=== PATIENT | female | born 1945 | race Caucasian/White ===

== ENCOUNTER 2020-12-14 07:54 | Day surgery (SDC) | payer BC ==
[2020-12-09 09:25] VITALS: BMI 27.1
[2020-12-14] MEDS ORDERED: PROPOFOL 20 ML ONE ×3 (08:26)
[2020-12-14] MEDS ORDERED: LIDOCAINE HCL/PF 2% SDV 5ML VIAL ONE (08:26)
[2020-12-14 09:47] VITALS: TEMP 97.5
[2020-12-14 10:25] VITALS: BP 143/76; PULSE 66
== END 2020-12-14 10:40 | disposition home or self-care (01) ==
LOC: FASU-ENDO 07:54
PROVIDERS: ATTEND Internal Medicine Gastroenterology
PROC: 0DJD8ZZ Inspection of Lower Intestinal Tract, Via Natural or Artificial Opening Endoscopic (ICD-10-PCS; principal; 2020-12-14 09:22)
DX: Z12.11 Encounter for screening for malignant neoplasm of colon (principal); K64.0 First degree hemorrhoids; K64.4 Residual hemorrhoidal skin tags; K62.5 Hemorrhage of anus and rectum

== ENCOUNTER 2021-02-27 22:37 | Emergency (ER) | payer BC ==
[2021-02-27 22:59] VITALS: PULSE 79; TEMP 98.3; BMI 29.2
[2021-02-27 23:16] VITALS: BP 150/90
== END 2021-02-27 23:49 | disposition home or self-care (01) ==
LOC: FER 22:37
DX: R23.2 Flushing (principal)
CPT/HCPCS: 99281-25

== ENCOUNTER 2022-04-05 14:15 | Emergency (ER) | payer BC ==
[2022-04-05 14:30] VITALS: BP 148/86; PULSE 84; RESP 18; TEMP 98.3; BMI 27.6
[2022-04-05] MEDS ORDERED: ASPIRIN 325 MG TABLET PO ONE (16:24)
[2022-04-05] MEDS ORDERED: ASPIRIN 325 MG TABLET ONE (16:26)
== END 2022-04-05 16:40 | disposition home or self-care (01) ==
LOC: FER 14:15
DX: G60.9 Hereditary and idiopathic neuropathy, unspecified (principal)
CPT/HCPCS: 70450-TC; 99284-25

== ENCOUNTER 2022-04-08 12:13 | Emergency (ER) | payer BC ==
[2022-04-08 12:21] VITALS: BP 139/91; PULSE 69; RESP 16; TEMP 98; BMI 28.3
[2022-04-08] MEDS ORDERED: CYCLOBENZAPRINE HCL 10 MG TABLET (FP) PO ONE (13:43)
[2022-04-08] MEDS ORDERED: CYCLOBENZAPRINE HCL 5 MG TABLET ONE (13:50)
== END 2022-04-08 14:00 | disposition home or self-care (01) ==
LOC: FER 12:13
DX: M79.10 Myalgia, unspecified site (principal)
CPT/HCPCS: 71046-TC-FY; 99284-25

== ENCOUNTER 2022-08-07 19:53 | Emergency (ER) | payer BC ==
[2022-08-07 20:02] VITALS: PULSE 88; RESP 16; TEMP 98.2; BMI 29.2
[2022-08-07] MEDS ORDERED: NITROGLYCERIN SUBLINGUAL 1/150 0.4 MG TAB SL ONE (20:18)
[2022-08-07] MEDS ORDERED: ASPIRIN 81 MG CHEWABLE TABLETS PO ONE (20:21)
[2022-08-07] MEDS ORDERED: metoPROLOL SUCCINATE 25 MG TAB.SR.24H (FP) PO ONE ×2 (20:22→20:40)
[2022-08-07 20:32] VITALS: BP 150/92
[2022-08-07] MEDS ORDERED: ASPIRIN COATED 81 MG TABLET.EC ONE (20:40)
[2022-08-07 20:53] LABS: HEMATOCRIT 38.9 % (32.4-45.2); HEMOGLOBIN 13.4 G/dL (10.7-15.3); MCH 29.8 pg (25.7-33.7); MCHC 34.4 g/dl (32.0-36.0); MEAN CELL VOLUME 86.4 fl (80-96); MEAN PLT VOLUME 8.4 fl (7.5-11.1); PLATELET COUNT 233.6 10^3/uL (134-434); RDW 14.7 % (11.6-15.6); WHITE BLOOD COUNT 5.1 10^3/uL (4.0-10.8)
[2022-08-07 21:00] LABS: ALBUMIN 4.1 g/dl (3.4-5.0); BILIRUBIN,TOTAL 0.7 mg/dl (0.2-1); CALCIUM 9.6 mg/dl (8.5-10); CREATININE 0.7 mg/dl (0.55-1.3); TOT PROT 6.6 g/dl (6.4-8.2)
[2022-08-07 22:10] LABS: PLATELET ESTIMATE ADEQUATE
== END 2022-08-07 22:58 | disposition home or self-care (01) ==
LOC: FER 19:53
DX: I10 Essential (primary) hypertension (principal)
CPT/HCPCS: 0241U-QW; 36415; 71045-TC-FY; 80053; 84436; 84443; 84481; 84484; 85027; 93005; 99285-25